=== PATIENT | female | born 1985 | race Native Hawaiian/Other Pacific Islander ===

== ENCOUNTER 2021-08-30 23:03 | Observation (INO) | payer OTHER ==
[~2021-08-30] VITALS: Ht 172.7 cm; Wt 64.6 kg
[2021-08-30 23:15] VITALS: BP 141/80; TEMP 98.1
[2021-08-30 23:30] VITALS: BP 140/91
[2021-08-30 23:45] VITALS: BP 147/99
[2021-08-31 00:15] VITALS: BP 152/84
[2021-08-31 00:30] VITALS: BP 136/82
[2021-08-31 00:38] LABS: PLATELET COUNT 339 K/uL (152-353)
[2021-08-31 03:41] VITALS: BP 134/85; TEMP 97.8; Ht 172.7 cm; Wt 64.6 kg
[2021-08-31 08:00] VITALS: BP 121/82; TEMP 97.7
[2021-08-31 09:03] LABS: PARTIAL THROMBOPLASTIN TIME 26.8 SECONDS (24.5-33.6)
[2021-08-31 12:00] VITALS: BP 135/85; TEMP 98.3
[2021-08-31 16:00] VITALS: BP 127/75; TEMP 98.6
[2021-08-31] MEDS ORDERED: BUDE1AER5 INH (17:36)
[2021-08-31] MEDS ORDERED: PRED10TA27 PO (17:37)
[2021-08-31] MEDS ORDERED: ALBU90AE13 INH (17:38)
== END 2021-08-31 17:55 | disposition home or self-care (01) ==
LOC: ED 23:03 → MED/SURG 08-31 02:46
PROVIDERS: ADMIT Emergency Medicine; ATTEND Internal Medicine
DX: J44.9 Chronic obstructive pulmonary disease, unspecified (principal); R07.89 Other chest pain
CPT/HCPCS: 80053; 80307; 81000; 84484; 85027; 85610; 85730; 87635; 93005; 99220; 99283; G0378; Q9963; U0003

== ENCOUNTER 2021-12-13 13:16 | Emergency (ER) | payer OTHER ==
[~2021-12-13 13:16] MED LIST: ALBU90AE13 INH; BUDE1AER5 INH; PRED10TA27 PO
[2021-12-13 16:24] LABS: POTASSIUM 3.5 mmol/L (3.6-5.2); SODIUM 134 mmol/L (136-145)
[2021-12-13 18:02] LABS: PARTIAL THROMBOPLASTIN TIME 27.2 SECONDS (24.5-33.6)
[2021-12-13 18:03] LABS: PLATELET COUNT 321 K/uL (152-353)
== END 2021-12-13 18:56 | disposition home or self-care (01) ==
LOC: ED 13:16
PROVIDERS: Family Medicine
DX: R74.8 Abnormal levels of other serum enzymes (principal); K56.41 Fecal impaction; F10.10 Alcohol abuse, uncomplicated; K21.9 Gastro-esophageal reflux disease without esophagitis; F17.210 Nicotine dependence, cigarettes, uncomplicated; R00.0 Tachycardia, unspecified
CPT/HCPCS: 36415; 80053; 81000; 82150; 82550; 83690; 84484; 85027; 85610; 85730; 86140; 87077; 87086; 87088; 87186; 93005; 96360; 96374; 96375; 99284; J1885